=== PATIENT | male | born 1975 | race African-American/Black ===

== ENCOUNTER 2025-01-18 22:15 | Emergency (ER) | payer MEDICAID, SELFPAY ==
[2025-01-18] MEDS ORDERED: Sodium Bicarb 50 MEQ/50 ML Abboject 8.4% SYRINGE ONE (22:20)
[2025-01-18] MEDS ORDERED: EPINEPHrine 1 MG/10 ML Abboject SYRINGE ONE (22:20)
[2025-01-18] MEDS ORDERED: Calcium Chloride 1 GM/10 ML Abboject SYRINGE ONE (22:20)
[2025-01-18] MEDS ORDERED: Magnesium 5 GM/10 ML Abboject SYRINGE ONE (22:20)
[2025-01-18] MEDS ORDERED: Dextrose 50% Abboject 50 ML SYRINGE ONE (22:20)
== END 2025-01-18 22:34 ==
LOC: ERS 22:15
DX: I46.9 Cardiac arrest, cause unspecified (principal); I10 Essential (primary) hypertension; E78.5 Hyperlipidemia, unspecified; E11.9 Type 2 diabetes mellitus without complications; Z95.0 Presence of cardiac pacemaker
CPT/HCPCS: 36416; 99285; J0165; J0282; J3475; J7999